=== PATIENT | female | born 1970 | race Caucasian/White ===

== ENCOUNTER 2018-04-14 00:51 | Observation (INO) | payer BC, OTHER ==
[2018-04-14 04:54] LABS: Troponin I Less than 0.010 ng/mL (< 0.028)
[2018-04-14] MEDS ORDERED: Ondansetron HCl/PF 4 MG/2 ML Vial IVP PRN ×2 (05:12→09:25)
[2018-04-14] MEDS ORDERED: Ondansetron ODT 4 MG TAB SL PRN (05:12)
[2018-04-14] MEDS ORDERED: Sodium Chloride 0.9% 1,000 ML IV SCH (05:12)
[2018-04-14 05:13] VITALS: BMI 23.6
[2018-04-14 07:34] LABS: #Basophils 0.1 thou/uL (0.0-0.2); #Lymphocytes 1.5 thou/uL (1.20-3.40); #Monocytes 0.5 thou/uL (0.11-0.59); #Neutrophils 8.7 thou/uL (1.40-6.50); %Basophils 0.5 % (0.0-1.0); %Eosinophils 0.3 % (0.0-10.0); %Lymphocytes 13.8 % (21.0-51.0); %Monocytes 4.8 % (0.0-10.0); %Neutrophils 80.6 % (42.0-75.0); Hemoglobin 14.8 g/dL (12.0-16.0); Mean Corpuscular HGB CONC 35.6 g/dL (32.0-36.0); Mean Corpuscular Hemoglobin 31.7 pg (27.0-31.0); Mean Corpuscular Volume 88.9 fL (78.0-98.0); Mean Platelet Volume 6.9 fL (7.4-10.4); Platelet Count 251 thou/uL (130-400); RBC Distribution Width 10.7 % (11.5-14.5); Red Blood Cell (RBC) Count 4.68 mill/uL (4.20-5.40); White Blood Cell (WBC) Count 10.7 thou/uL (4.8-10.8)
[2018-04-14 07:36] LABS: PTT 24.2 SEC (22.9-36.1); Prothrombin Time 13.1 SEC (12.0-14.7)
[2018-04-14 07:52] LABS: ALT (SGPT) 11 U/L (8-55); AST (SGOT) 18 U/L (5-34); Albumin 4.5 g/dL (3.5-5.0); Alkaline Phosphatase 85 U/L (40-150); Anion Gap 19 mmol/L (10-20); BUN (Urea Nitrogen) 15 mg/dL (7.0-18.7); Bilirubin, Total 1.2 mg/dL (0.2-1.2); Calc. Creatinine Clearance 90 mL/min (70-130); Carbon Dioxide 14 mmol/L (22-29); Chloride 106 mmol/L (98-107); Estimated GFR-MDRD 77; Globulin 2.8 g/dL (2.4-3.5); Potassium 4.4 mmol/L (3.5-5.1); Protein, Total 7.3 g/dL (6.0-8.3); Sodium 135 mmol/L (136-145)
[2018-04-14 07:57] LABS: Troponin I Less than 0.010 ng/mL (< 0.028)
[2018-04-14 07:58] LABS: Glucose 56 mg/dL (70-105)
[2018-04-14] MEDS ORDERED: Dextrose 50% Abboject 50 ML SYRINGE ONE (08:01)
--- NOTE | 2018-04-14 08:01 | RAD ---
AP VIEW CHEST: INDICATION: Rule out infiltrate. FINDINGS: There are patchy areas of opacity within the region of the left lung base. These cannot be further l ocalized on the single projection. The right lung is clear. COPD change is present. Heart size is within normal limits. Osseous structures are unchanged. IMPRESSION: Patchy opacity within the left lung base possibly in the region of the lingula or left lower lobe. T wo-view chest radiograph may be helpful for additional characterization. POS: FRANCES
[2018-04-14] MEDS ORDERED: Promethazine HCl 25 MG/ML VIAL IM PRN (09:25)
[2018-04-14] MEDS ORDERED: Promethazine HCl 25 MG/ML VIAL SLOW IVP PRN (09:25)
[2018-04-14 09:34] VITALS: TEMP 98.3
--- NOTE | 2018-04-14 09:47 | OP ---
DATE OF PROCEDURE: 04/14/2018 PREOPERATIVE DIAGNOSIS: Esophageal foreign body. DESCRIPTION OF PROCEDURE: After informed consent was obtained, the patient was placed in the left la teral decubitus position. Anesthesia was administered per the Anesthesia Department. Forward-viewin g endoscope was inserted into the esophagus under direct visualization with ease and passed to the se cond portion of the duodenum with ease. This was after the foreign body was removed. The second por tion of duodenum and duodenal bulb were normal. The pylorus, antrum, body, fundus, and cardia were n ormal. In the distal esophagus, a meat impaction was noted. This was retrieved and brought out the mouth with a hexagonal snare. It appeared to be a meat impaction. Reinsertion of the endoscope show ed the esophagus had narrowed areas in most of the esophagus. A 54-[place] Alonzo dilator was passed with significant resistance. It was only passed approximately senior care and then removed. Reinsertio n showed a mucosal tear in the upper half of the esophagus. There were linear furrows throughout the whole esophagus and biopsies were taken for eosinophilic esophagitis. ASSESSMENT: 1. Esophageal foreign body - status post extraction. 2. Esophageal stricture involving the whole esophagus - status post partial dilatation with Alonzo dilator. 3. Linear furrows throughout the entire esophagus - status post biopsy for eosinophilic esophagitis. RECOMMENDATIONS: 1. Okay to discharge from GI standpoint. 2. Begin omeprazole 40 mg 1 p.o. daily. 3. Await histopathology. 4. Repeat dilatations as needed. 5. Soft diet for the next 24-48 hours.
--- NOTE | 2018-04-14 09:53 | CON ---
DATE OF CONSULTATION: 04/14/2018 HISTORY OF PRESENT ILLNESS: Patient is a 48-year-old female, who reports she was in her no rmal state of health until the day of admission when she was eating some sort of brisket and felt lar ge. Since then, she has been unable to swallow any food or liquid. She was initially seen at [facility] ER and initial evaluation and treatment were unsuccessful in relieving the problem, so she was bnasal sferred to [facility]. At that point, she seemed to be tolerating her secretions. She was no longer spitting up her saliva. It was felt that, at that point, she could wait until the morning. She has had 2 similar episodes over the last few months, all untreated and resolve themselv es. She does report heartburn, for which she takes Tums and Rolaids. PAST MEDICAL HISTORY: Bronchitis. PAST SURGICAL HISTORY: Includes none. SOCIAL HISTORY: She does smoke. Drinks several beers per day. ALLERGIES: PENICILLIN. MEDICATIONS: No known prescription medications. FAMILY HISTORY: Negative for GI or liver disease. REVIEW OF SYSTEMS: Constitutional: No fever or chills, no weight loss. Eyes: No blurred vision or double vision. ENT: No sore throat or earaches. Cardiovascular: No chest pain or palpitations. Pulmonary: No shortness of breath, cough, or wheezing. Gastrointestinal: See above. : No hemat uria or dysuria. Musculoskeletal: No joint pain or muscle weakness. Skin: No rashes. Neurologic: No numbness or seizure activity. PHYSICAL EXAMINATION: GENERAL: Shows a well-developed, well-nourished white female, in no acute distress. VITAL SIGNS: Temperature is 98.2, pulse rate is 98, respiratory rate 16, blood pressure 119/64. HEENT: Unremarkable. NECK: Supple. CHEST: Clear. CARDIOVASCULAR: Regular rate and rhythm. ABDOMEN: Soft and nontender, without organomegaly or masses. Bowel sounds are present and normoacti ve. RECTAL: Deferred. EXTREMITIES: Normal. NEUROLOGIC: Nonfocal. LABORATORY DATA: Shows an essentially normal CBC. PT is 13.1 with an INR of 1.0. Chemistries show sodium 135, CO2 of 14, glucose 56. ASSESSMENT: 1. Esophageal foreign body. 2. Gastroesophageal reflux disease. RECOMMENDATIONS: EGD and foreign body extraction.
[2018-04-14 10:56] VITALS: BP 134/71
--- NOTE | 2018-04-14 13:36 | SS ---
REASON FOR ADMISSION: Food impaction in the esophagus, esophageal stricture. HISTORY OF PRESENTING ILLNESS: Patient was at her friend's house and was trying to eat bakon wrapped jalapeno poppers. This got stuck in her throat and various efforts by her, she could not dislodge the food nor make it get inside her stomach. She finally went to [facility] ER around 9:30 p.m. yesterday. The patient was maintaining her airway. The decision was made to place her under observation and have upper endoscopy with removal by Dr. Leal this morning. The patient states she has had this happen 2 other times, but has not seen a book cleaner in the past. Currently, she has no complaints of chest pain or palpitation. PAST MEDICAL AND SURGICAL HISTORY: History of allergic bronchitis, anxiety, depression. CURRENT MEDICATIONS: None. ALLERGIES: PENICILLIN. PERSONAL HISTORY: Drinks 2-3 beers or a glass of red wine on a daily basis. Does not abuse drugs. Smokes on social occasions. FAMILY HISTORY: Mother has severe osteoarthritis of the knee. Father has had CABG. CODE STATUS: FULL. REVIEW OF SYSTEMS: The following complete review of systems was negative, unless otherwise mentioned in the HPI or below: Constitutional: Weight loss or gain, ability to conduct usual activities. Skin: Rash, itching. Eyes: Double vision, pain. ENT/Mouth: Nose bleeding, neck stiffness, pain, tenderness. Cardiovascular: Palpitations, dyspnea on exertion, orthopnea. Respiratory: Shortness of breath, wheezing, cough, hemoptysis, fever or night sweats. Gastrointestinal: Poor appetite, abdominal pain, heartburn, nausea, vomiting, constipation, or diarrhea. Genitourinary: Urgency, frequency, dysuria, nocturia. Musculoskeletal: Pain, swelling. Neurologic/Psychiatric: Anxiety, depression. Allergy/Immunologic: Skin rash, bleeding tendency. PHYSICAL EXAMINATION: GENERAL: The patient is a 48-year-old female who is currently not in any acute distress. VITAL SIGNS: Blood pressure 120/78, pulse 100 per minute, respiratory rate 16 per minute, temperature 98 degrees Fahrenheit, saturating 97% on room air. NECK: Supple, no elevated JVD. EYES: Extraocular muscles intact. Pupils reacting to light. ORAL CAVITY: Mucous membranes are dry. No exudates or congestion. CARDIOVASCULAR SYSTEM: S1, S2 heard. Regular rhythm. RESPIRATORY SYSTEM: Air entry 2+ bilateral. No rales or rhonchi. ABDOMEN: Soft, bowel sounds heard. No tenderness, rigidity or guarding. EXTREMITIES: No peripheral edema or calf tenderness. VASCULAR SYSTEM: Peripheral pulses 1+ bilateral, no ischemic ulcerations or gangrene. CENTRAL NERVOUS SYSTEM: No gross focal deficits noted. The patient is alert, awake, oriented well. PSYCHIATRIC SYSTEM: The patient's mood is euthymic. No hallucinations or delusions. LABORATORY DATA AND IMAGING DATA: White count of 10, hemoglobin and hematocrit 14 and 41, platelet count 251 with 80% neutrophils. PT, INR, PTT within normal limits. Serum bicarbonate is 14, BUN 15, creatinine 0.8, serum glucose was 56 this morning. Troponin x3 is negative. Upper endoscopy done by Dr. Leal this morning showed esophageal foreign body, status post extraction. There is also esophageal stricture involving the whole esophagus status post partial dilatation with Alonzo dilator. There are linear furrows throughout the entire esophagus status post biopsy for eosinophilic esophagitis. CLINICAL IMPRESSION AND PLAN: The patient will be shortly discharged home. She is status post EGD with dilatation and extraction of the foreign body. She needs to continue omeprazole 40 mg daily, be on a soft diet for the next 2 days. The patient is to follow up with Dr. Leal in the outpatient setting. She will be given a soft diet and repeat fingerstick glucose will be done to make sure she is not hypoglycemic prior to discharge now. She is otherwise hemodynamically stable and is ambulating by herself. Please note this is a same day observation admit, discharge summary. [facility]
[2018-04-14] MEDS ORDERED: PROPOFOL 200 MG/20 ML VIAL ONE (15:57)
[2018-04-14] MEDS ORDERED: Lidocaine 1% PF 5 ML VIAL ONE (15:57)
[2018-04-14] MEDS ORDERED: Ondansetron HCl/PF 4 MG/2 ML Vial ONE (15:57)
[2018-04-14] MEDS ORDERED: Succinylcholine Chloride 20 MG/ML 10 ml SYRINGE FS ONE (15:57)
== END 2018-04-14 11:27 | disposition home or self-care (01) ==
LOC: ERS 00:51 → 2SW 03:12
PROVIDERS: ADMIT Hospitalist; ATTEND Internal Medicine Gastroenterology
PROC: 0DB58ZX Excision of Esophagus, Via Natural or Artificial Opening Endoscopic, Diagnostic (ICD-10-PCS; principal; 2018-04-14)
PROC: 0DC58ZZ Extirpation of Matter from Esophagus, Via Natural or Artificial Opening Endoscopic (ICD-10-PCS; 2018-04-14)
PROC: 0D758ZZ Dilation of Esophagus, Via Natural or Artificial Opening Endoscopic (ICD-10-PCS; 2018-04-14)
DX: T18.128A Food in esophagus causing other injury, initial encounter (principal); K22.2 Esophageal obstruction; K20.9 Esophagitis, unspecified; F17.200 Nicotine dependence, unspecified, uncomplicated; Z88.0 Allergy status to penicillin
CPT/HCPCS: 36415; 71045; 80053; 84484; 85025; 85610; 85730; 88305; 88312; 88313; 96360; 99284; G0378; J2001; J2405; J2704